=== PATIENT | male | born 1945 | race Caucasian/White ===

== ENCOUNTER 2022-12-18 08:28 | Emergency (ER) | payer MEDICAID ==
[~2022-12-18] VITALS: Ht 172.7 cm; Wt 114.0 kg
[2022-12-18 08:30] VITALS: O2SAT 95
[2022-12-18 09:25] LABS: BASOPHILS % 0.8 % (0.0-2.0); EOSINOPHILS % 3.7 % (0.0-5.0); LYMPHOCYTES % 11.3 % (20.0-50.0); MEAN CORPUSCULAR HEMOGLOBIN 32.6 pg (28.0-32.0); MEAN CORPUSCULAR HGB CONC 34.6 g/dL (31.0-37.0); MEAN CORPUSCULAR VOLUME 94.2 fL (80.0-94.0); MEAN PLATELET VOLUME 7.2 fl (7.4-10.4); MONOCYTES % 8.8 % (2.0-8.0); NEUTROPHILS % 75.4 % (40.0-76.0); PLATELET 138 x1000/uL (130-400); RED BLOOD CELL COUNT 3.08 mill/uL (4.7-6.1); RED CELL DISTRIBUTION WIDTH 15.9 % (11.6-14.6); WHITE BLOOD COUNT 6.6 x1000/uL (4.5-11.0)
[2022-12-18 09:28] LABS: CALCIUM 9.2 mg/dL (8.5-10.1); CHLORIDE 97 mEq/L (98-107); INDEX HEMOLYSI 1 (1-3); INDEX ICTERIC 1 (1-4); INDEX LIPEMIC 1 (1-3); POTASSIUM 4.8 mEq/L (3.5-5.1); SODIUM 135 mEq/L (136-145)
[2022-12-18 09:32] LABS: PROTHROMBIN TIME 10.6 sec (9.6-11.0)
[2022-12-18 09:37] LABS: ALANINE AMINOTRANSFERASE 16 IU/L (13-61); ASPARTATE AMINOTRANSFERASE 11 IU/L (15-37); BILIRUBIN TOTAL 0.4 mg/dL (0.1-1.0); CARBON DIOXIDE 32 mEq/L (21-32); GLUCOSE 169 mg/dL (70-105); PROTEIN TOTAL 6.7 g/dL (6.0-8.3); TROPONIN I HIGH SENSITIVITY 10 ng/L (<78); UREA NITROGEN BLOOD 67 mg/dL (7-21)
[2022-12-18 09:55] LABS: CREATININE 7.6 mg/dL (0.6-1.3)
[2022-12-18 11:37] LABS: TROPONIN I HIGH SENSITIVITY 10 ng/L (<78)
[2022-12-18 12:00] VITALS: BP 135/69; PULSE 62; RESP 16; TEMP 98.1
== END 2022-12-18 12:33 | disposition home or self-care (01) ==
LOC: ER 08:28
DX: R07.89 Other chest pain (principal); E78.00 Pure hypercholesterolemia, unspecified; E11.22 Type 2 diabetes mellitus with diabetic chronic kidney disease; I12.0 Hypertensive chronic kidney disease with stage 5 chronic kidney disease or end stage renal disease; N18.6 End stage renal disease
CPT/HCPCS: 36415; 71045; 80053; 84484; 85025; 99284